=== PATIENT | male | born 1945 ===

== ENCOUNTER 2018-10-22 14:00 | Emergency (ER) | payer SELFPAY ==
--- NOTE | 2018-10-22 14:26 | ED PDOC ---
Arrival/HPI - General Time Seen by Provider: 10/22/18 14:14 Historian: Patient, Family (Granddaughter translating from tagalog) - History of Present Illness Narrative History of Present Illness (Text): 10/22/18 14:14 Donnie Vargas is a 73 year old male, with a past medical history of Hypertension, who presents to the emergency department requesting evaluation for hypertension. Symptom Onset: Gradual Activities at Onset: Light Context: Home Family/Social History Family/Social History: Unknown Family HX Medical Decision Making ED Course and Treatment: 10/23/18 10:48 Patient with daughter and states that they meant to go to the clinic to get a check up for his HTN so they prefer to leave and go there. He had no complaints and would rather leave and go to the clinic. I offered my services and they decided to leave. Daughter translated as per patient request. CARO Nash made me aware as well. Disposition/Present on Arrival - Present on Arrival Any Indicators Present on Arrival: No - Disposition Have Diagnosis and Disposition been Completed?: No Diagnosis: Hypertension Disposition Time: 14:30 Patient Plan: Discharge Condition: GOOD
== END 2018-10-22 14:34 | disposition home or self-care (01) ==
LOC: ED 14:00
DX: I10 Essential (primary) hypertension (principal)